=== PATIENT | female | born 1995 | race African-American/Black ===

== ENCOUNTER 2020-08-23 15:38 | Emergency (ER) | payer OTHER ==
[2020-08-23] MEDS ORDERED: hydrOXYzine 25 MG TAB ONE (17:40)
== END 2020-08-23 17:42 | disposition home or self-care (01) ==
LOC: CSHERS 15:38
DX: S40.262A Insect bite (nonvenomous) of left shoulder, initial encounter (principal); S40.261A Insect bite (nonvenomous) of right shoulder, initial encounter; S80.862A Insect bite (nonvenomous), left lower leg, initial encounter; S80.861A Insect bite (nonvenomous), right lower leg, initial encounter; S40.862A Insect bite (nonvenomous) of left upper arm, initial encounter; S40.861A Insect bite (nonvenomous) of right upper arm, initial encounter
CPT/HCPCS: 99282

== ENCOUNTER 2020-09-25 02:47 | Emergency (ER) | payer OTHER ==
[2020-09-25 03:17] LABS: Bilirubin Neg (Negative); Blood, Urine 250 (Negative); Clarity Cloudy (Clear); Glucose, Urine (Dipstick) Normal (Negative); Ketone, Urine 5 mg/dL (Negative); Leukocyte 25 (Negative); Nitrite Negative (Negative); Protein, Urine (Dipstick) 30 mg/dl (Neg-Trace); Specific Gravity, Urine 1.025 (1.002-1.036)
[2020-09-25 03:19] LABS: Pregnancy Test - Urine (BHCG) Negative (Negative); Pregu Control Background? CLEAR/WHITE (CLR/WHITE); Pregu Control Bar Appear? YES (CONTROL BAR); Specific Gravity 1.025 (1.002-1.036)
[2020-09-25] MEDS ORDERED: Ketorolac Tromethamine 30 MG/ML VIAL ONE (03:21)
[2020-09-25 03:24] LABS: RBC/HPF 21-50 HPF (0-3)
[2020-09-25 03:25] LABS: Bacteria/HPF 1+ HPF (None Seen); Mucous/LPF 3+ LPF (<2+)
[2020-09-25 03:36] LABS: #Eosinphils 0.1 10x3/uL (0.0-0.5); #Monocytes 0.6 10x3/uL (0.0-1.1); #Neutrophils 5.6 10x3/uL (1.5-8.4); %Basophils 0.4 % (0.0-2.0); %Eosinophils 0.8 % (0.0-6.0); %Lymphocytes 19.6 % (18.0-47.0); %Neutrophils 70.9 % (40.0-75.0); Hemoglobin 12.8 g/dL (12.0-15.5); Mean Corpuscular HGB CONC 33.3 g/dL (32.0-36.0); Mean Corpuscular Hemoglobin 29.7 pg (27.0-33.0); Mean Corpuscular Volume 89.1 fl (81.6-98.3); Mean Platelet Volume 11.3 fl (7.4-10.4); Platelet Count 275 10x3/uL (150-450); RBC Distribution Width 11.9 % (11.5-14.5); Red Blood Cell (RBC) Count 4.31 10x6/uL (3.90-5.03); White Blood Cell (WBC) Count 7.9 10x3/uL (3.5-10.5)
== END 2020-09-25 04:41 | disposition home or self-care (01) ==
LOC: CSHERS 02:47
DX: N94.6 Dysmenorrhea, unspecified (principal)
CPT/HCPCS: 81003; 81015; 81025; 85025; 96372; 99284; J1885

== ENCOUNTER 2022-01-29 08:30 | Emergency (ER) | payer OTHER | END 2022-01-29 08:57 | disposition home or self-care (01) | LOC: CSHERS 08:30 | DX: L50.9 Urticaria, unspecified (principal) | CPT/HCPCS: 99282 ==

== ENCOUNTER 2022-01-31 12:26 | Emergency (ER) | payer OTHER | END 2022-01-31 16:15 | disposition home or self-care (01) | LOC: CSHERS 12:26 | DX: L50.9 Urticaria, unspecified (principal) | CPT/HCPCS: 99282 ==

== ENCOUNTER 2025-01-28 07:45 | Emergency (ER) | payer BC, SELFPAY ==
[2025-01-28 08:40] LABS: Glucose, Urine (Dipstick) Normal (Negative); Leukocyte Negative (Negative); Protein, Urine (Dipstick) 15 mg/dl (Neg-Trace); Specific Gravity, Urine 1.020 (1.005-1.030)
[2025-01-28 08:45] LABS: Pregnancy Test - Urine (BHCG) Negative (Negative); Pregu Control Background? CLEAR/WHITE (CLR/WHITE); Pregu Control Bar Appear? YES (CONTROL BAR)
[2025-01-28] MEDS ORDERED: Ibuprofen 200 MG TAB ONE (09:05)
[2025-01-28 11:21] LABS: Bacteria/HPF None Seen HPF (None Seen); CAUTI Indications for Culture Pelvic or flank pain; Mucous/LPF 1+ LPF (<2+); RBC/HPF 0-3 HPF (0-3); Urine Culture Reflex No No; WBC/HPF 0-3 HPF (0-3)
== END 2025-01-28 09:03 | disposition home or self-care (01) ==
LOC: CSHERS 07:45
DX: D25.9 Leiomyoma of uterus, unspecified (principal); R10.2 Pelvic and perineal pain
CPT/HCPCS: 81001; 81025; 99284

== ENCOUNTER 2025-02-10 19:31 | Emergency (ER) | payer SELFPAY ==
[2025-02-10] MEDS ORDERED: Prochlorperazine 10 MG/2 ML VIAL ONE (20:20)
[2025-02-10] MEDS ORDERED: Ketorolac Tromethamine 30 MG (1 mL) VIAL ONE (20:20)
[2025-02-10] MEDS ORDERED: diphenhydrAMINE 25 MG CAP ONE (20:20)
[2025-02-10 20:38] LABS: Glucose, Urine (Dipstick) Normal (Negative); Leukocyte Negative (Negative); Pregnancy Test - Urine (BHCG) Negative (Negative); Pregu Control Background? CLEAR/WHITE (CLR/WHITE); Pregu Control Bar Appear? YES (CONTROL BAR); Protein, Urine (Dipstick) Negative (Neg-Trace); Specific Gravity, Urine 1.015 (1.005-1.030)
[2025-02-10 20:47] LABS: Bacteria/HPF 3+ HPF (None Seen); CAUTI Indications for Culture Dysuria,urgency,freq; Mucous/LPF 1+ LPF (<2+); RBC/HPF None Seen HPF (0-3); WBC/HPF 0-3 HPF (0-3)
[2025-02-10 20:48] LABS: Urine Culture Reflex No No
== END 2025-02-10 21:32 | disposition home or self-care (01) ==
LOC: CSHERS 19:31
DX: G44.009 Cluster headache syndrome, unspecified, not intractable (principal)
CPT/HCPCS: 70450; 81001; 81025; 96372; J0780; J1885

== ENCOUNTER 2025-03-17 09:17 | Emergency (ER) | payer SELFPAY ==
[2025-03-17 10:02] LABS: #Basophils 0.04 10x3/uL (0.0-0.2); #Eosinophils 0.05 10x3/uL (0.0-0.5); #Monocytes 0.40 10x3/uL (0.0-1.1); #Neutrophils 4.17 10x3/uL (1.5-8.4); %Basophils 0.7 % (0.0-2.0); %Eosinophils 0.8 % (0.0-6.0); %Lymphocytes 21.6 % (18.0-47.0); %Monocytes 6.7 % (0.0-10.0); %Neutrophils 70.0 % (40.0-75.0); Hematocrit 39.1 % (34.9-44.5); Hemoglobin 13.0 g/dL (12.0-15.5); Mean Corpuscular Hemoglobin 29.5 pg (27.0-33.0); Mean Corpuscular Volume 88.7 fL (81.6-98.3); Platelet Count 345 10x3/uL (150-450); Red Blood Cell (RBC) Count 4.41 10x6/uL (3.90-5.03); White Blood Cell (WBC) Count 5.96 10x3/uL (3.5-10.5)
[2025-03-17 10:12] LABS: BHCG - Serum Negative (NEGATIVE); Pregs Control Background? CLEAR/WHITE (CLR/WHITE); Pregs Control Bar Appear? YES (CONTROL BAR)
[2025-03-17] MEDS ORDERED: Acetaminophen 500 MG TAB ONE (10:16)
[2025-03-17 10:23] LABS: ALT (SGPT) 22 U/L (Less than 34); AST (SGOT) 22 U/L (11-34); Albumin 4.1 g/dL (3.1-4.5); Alkaline Phosphatase 52 U/L (40-110); Anion Gap 12 mmol/L (10-20); BUN (Urea Nitrogen) 13 mg/dL (7.0-18.7); Bilirubin, Total 0.5 mg/dL (0.3-1.2); Calc. Creatinine Clearance 0 mL/min (70-130); Calcium 9.2 mg/dL (7.8-10.44); Carbon Dioxide 26 mmol/L (22-29); Chloride 106 mmol/L (98-107); Globulin 3.9 g/dL (2.4-3.5); Glucose 93 mg/dL (70-105); Lipase 15 U/L (8-78); Potassium 4.1 mmol/L (3.5-5.1); Sodium 140 mmol/L (136-145)
[2025-03-17 10:32] LABS: Glucose, Urine (Dipstick) Normal (Negative); Leukocyte Negative (Negative); Protein, Urine (Dipstick) 15 mg/dl (Neg-Trace); Specific Gravity, Urine 1.015 (1.005-1.030)
[2025-03-17 11:08] LABS: Bacteria/HPF 1+ HPF (None Seen); CAUTI Indications for Culture Pelvic or flank pain; RBC/HPF 0-3 HPF (0-3); WBC/HPF 0-3 HPF (0-3)
[2025-03-17 11:09] LABS: Urine Culture Reflex No No
== END 2025-03-17 12:03 | disposition home or self-care (01) ==
LOC: CSHERS 09:17
DX: R10.24 Suprapubic pain (principal)
CPT/HCPCS: 80053; 81001; 83690; 84703; 85025; 99284